=== PATIENT | male | born 1985 ===

== ENCOUNTER 2022-03-11 15:51 | Emergency (ER) | payer SELFPAY ==
[2022-03-11 15:52] VITALS: BP 154/103; PULSE 102; RESP 18; TEMP 36.8; O2SAT 99; BMI 25.0
--- NOTE | 2022-03-11 16:10 | ED.RN ---
Mother arrives and states she is taking pt to [facility] despite being told he would be going back soon. Voices understanding of risks.
== END 2022-03-11 16:51 | disposition left against medical advice (07) ==
LOC: ED 16:50
DX: Z53.21 Procedure and treatment not carried out due to patient leaving prior to being seen by health care provider (principal)